=== PATIENT | male | born 1995 | race Caucasian/White ===

== ENCOUNTER 2016-12-19 21:15 | Emergency (ER) | payer OTHER ==
[~2016-12-19] VITALS: Ht 175.3 cm; Wt 113.4 kg
[~2016-12-19 21:15] MED LIST: ALLEGRA60 MG; ALLERGY SHOTS IM; BACTRIM DS 8001 TAB PO; MOTRIN600 MG PO; ZITHROMAX Z-PA250 M1 PO
[2016-12-19 21:59] LABS: HEMOGLOBIN 16.2 g/dL (14.1-18.0); LYMPH # 4.8 K/mm3 (0.7-4.5)
[2016-12-19 22:38] LABS: URINE BILIRUBIN - DIPSTICK NEGATIVE (NEG); URINE BLOOD 3+ (NEG)
--- NOTE | 2016-12-19 23:26 | Emergency Room Report ---
History of Present Illness Time Seen by [id number] Presenting Problem in Triage Pt arrived:Walked Presenting Problem:ABD PAIN THROUGH TO HIS BACK- SEVERE NAUSEA= SYMPTOMS STARTED WHEN HE LAID DOWN TO GO TO BED. HAS BEEN TO DR VANG ABOUT ELEVATED LIVER ENZYMES RECENTLY. 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 N Clinical Suspician of Infection? N Mental Status: 1 - Regular (Normal Baseline) Sepsis Risk:Low Sepsis Risk Have you (or family members/close friends) recently traveled outside the [place]? N If Yes, where/when: Have you had exposure to infectious disease within the past month? TB? Other? Specify: Source patient, RN notes reviewed, family, old records Exam Limitations no limitations Comment acute onset of lt sided abd pain- with no fever or vomiting Cardiac Chest Pain Chest pain indicative of cardiac No Timing/Duration this evening Severity moderate ALLERGIES Coded Allergies: No Known Drug Allergies (NKDA) (12/19/16) Home Medications Reported Medications No Known Home Medications History Medical History General Angina: No [place]: No Hypertension? Yes Hyperlipidemia? No CHF? No COPD? No Asthma? Yes CVA? No Seizures? No Diabetes? No GB Disease: No MRSA? Yes TB? No Cancer? No Immunization Hx DT/Tetanus 05/24/2011 Surgical Hx Previous Surgery?Y Tonsils EAR TUBES Social History Smoking Hx Smoker: Never Smoker Tobacco: No Type Snuff Are you/the child exposed to second-hand smoke: No Alcohol Alcohol: No Drugs none Review of Systems All Other Systems Reviewed and Negative Constitutional denies fever Eyes denies drainage ENT denies: ear discharge, epistaxis, throat pain. Respiratory denies cough, denies shortness of breath, denies wheezing Cardiovascular denies chest pain, denies palpitations, denies syncope Gastrointestinal see HPI, abdominal pain, nausea, vomiting Genitourinary denies: dysuria, frequency, hesitancy, scrotal/testicular pain. Musculoskeletal denies back pain, denies joint pain, denies joint swelling, denies neck pain Skin denies rash Psychiatric/Neurological denies headache, denies seizure Physical Exam Vital Signs Vital Signs Date Time Temp Pulse Resp B/P Pulse O2 O2 Flow FiO2 Ox Delivery Rate 12/1911 2121 98.6 85 18 173/138 97 - WBC >12,000 or <4,000 or 10% bands? 2 or more SIRS Criteria Met? B/P:173/138 MAP:149 Creatinine >2.0? UA output<0.5ml/kg/hr for 2 hrs? Platelet count >100,000? Lactate >2.0mmol/1? INR >1.2 or PTT > than 60 sec? Evidence of Organ Dysfunction? Provider documented clinical suspician of infection? N Sepsis Criteria Count: 0 Sepsis Risk: Low Sepsis Risk General Appearance no apparent distress Eye Exam - bilateral eye PERRL, bilateral eye EOMI Ear, Nose, Throat normal ENT inspection Neck supple Respiratory Status No: respiratory distress. 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 No Results/Orders Laboratory Tests 12/19/162229: Urine Color YELLOW, Urine Appearance CLOUDY, Urine pH 6.0, Ur Specific [place] 1.025, Urine Protein NEGATIVE, Urine Ketones NEGATIVE, Urine Blood 3+ H, Urine Nitrate NEGATIVE, Urine Bilirubin NEGATIVE, Urine Urobilinogen 0.2, Ur Leukocyte Esterase NEGATIVE, Urine RBC TNTC, Amorphous Sediment 2+, Urine Glucose NEGATIVE 12/19/162149: Amylase 38, Lipase 73 12/19/162149: Sodium 141, Potassium 3.5, Chloride 104, Carbon Dioxide 27, BUN 9, Creatinine 0.9, Estimated Creat Clear 206 H, Estimated GFR (MDRD) 106, Glucose 136 H, Calcium 9.0, Total Bilirubin 0.3, AST 15, ALT 35, Alkaline Phosphatase 75, Total Protein 7.1, Albumin 3.9, Globulin 3.2, Albumin/Globulin Ratio 1.2, WBC 10.4, RBC 5.64, Hgb 16.2, Hct 45.7, MCV 81.1 L, RDW 13.5, Plt Count 268, MPV 6.4 L, Gran % 45.5, Gran # 4.8, Lymphocytes % 46.0, Monocytes % 5.9, Eosinophils % 1.9, Basophils % 0.7, Lymphocytes # 4.8 H, Monocytes # 0.6, Eosinophils # 0.2, Basophils # 0.1, PUBS MCHC 35.4, MCH 28.7 Current Medication Orders Sig/Edith Start time Last Medication Dose Route Stop Time Status Admin Tamsulosin HCl 0.4 MG ONCE ONE 12/19 2329 DC 12/19 PO 12/19 Tamsulosin HCl 0 .STK-MED ONE 12/19 2316 DC PO Ketorolac 30 MG ONCE ONE 12/19 2199 DC 12/19 Tromethamine IV 12/19 Ondansetron HCl 4 MG ONCE ONE 12/19 2199 DC 12/19 IV 12/19 Ketorolac 0 .STK-MED ONE 12/19 2136 DC Tromethamine .ROUTE Ondansetron HCl 0 .STK-MED ONE 12/19 2135 DC .ROUTE Sodium Chloride 10 ML PRN PRN 12/19 2129 AC 12/19 IV 12/20 Orders Procedure Date/time Status DIET-NOTHING BY MOUTH 12/20 B Active URINALYSIS/COMPLETE 12/[address] ABD & PELVIS W/O CONTRAST 12/[address] ABD/PELVIS REQ 12/19 2135 Active IV SALINE LOCK 12/19 2129 Active LIPASE 12/19 2129 Complete CBC WITH AUTO DIFF 12/19 2129 Complete CHEM 12 PROFILE 12/19 2129 Complete AMYLASE 12/19 2129 Complete XRAY/CT/US XRAY/CT/US CT abdomen, pelvis CT interpretation by discussed w/radiologist Time results known: 2324 CT Results abnormal (kidney stone) Departure Departure Time of Disposition 2324 Disposition DC Home or Self Care(routine) Clinical Impression Primary Impression: Renal colic on left side Condition STABLE Referrals Marco Vang MD (Family) Patient Instructions DI for Kidney Stones Additional Instructions fluids and see pcp for follow up Discharge Counseling Counseled pt/family regarding diagnosis, test results, medications/RX, follow up needs Prescriptions Current Visit Scripts TAMSULOSIN HCL (Flomax 0.4MG) 0.4 MG PO DAILY #10 [facility] ED Critical Care Critical Care No at [id number]
[2016-12-19] MEDS ORDERED: FLOMAX 0.4MG C0.4 MG PO (23:33)
[2016-12-19 23:40] VITALS: BP 139/89
--- NOTE | 2016-12-20 06:44 | RADIOLOGY REPORT PS360 ---
CT ABD PELVIS W/O CONTRAST CLINICAL INDICATION: Abdominal pain with nausea and vomiting ABD PAIN ORDERING PHYSICIAN: Quoc Machado MD PATIENT AGE: 21 years COMPARISON: 07/26/2011 TECHNIQUE: Axial images obtained with sagittal and coronal reformats. PROCEDURE: Oral Contrast: None IV Contrast: None . FINDINGS: Lower thorax: No acute finding . Minimal nonspecific thickening of the pericardium anteriorly ABDOMEN: Liver: No masses or biliary dilatation. Gallbladder: Nondistended. No radio opaque stones. Pancreas: No masses or peripancreatic fluid collections. Spleen: Borderline splenomegaly at 14 cm Adrenals: Unremarkable Kidneys/ureters: Punctate right renal calculi. Mild left hydronephrosis and hydroureter secondary to a 3 mm stone at the ureterovesical junction Stomach bowel: Nondistended. No obvious mass or thickening. Appendix: No evidence of appendicitis. PELVIS: Reproductive: Unremarkable Bladder: Nondistended. No obvious stones or masses. ABDOMEN & PELVIS: Peritoneum: No abnormal fluid collections. No obvious inflammatory changes. No free air. Lymph nodes: No enlarged lymph nodes apparent. Vasculature: No evidence of abdominal aortic aneurysm. No retroperitoneal hemorrhage evident. Bones: No acute fracture IMPRESSION: 1. 3 mm left ureterovesical junction stone with mild hydroureteronephrosis. 2. Nonobstructing right nephrolithiasis.
== END 2016-12-19 23:41 | disposition home or self-care (01) ==
LOC: ER 21:15
PROVIDERS: Emergency Medicine
DX: N20.0 Calculus of kidney (principal); I10 Essential (primary) hypertension
CPT/HCPCS: J2405

== ENCOUNTER 2017-01-18 22:35 | Emergency (ER) | payer OTHER ==
[~2017-01-18] VITALS: Ht 175.3 cm; Wt 111.1 kg
[~2017-01-18 22:35] MED LIST changes: +FLOMAX 0.4MG C0.4 MG PO
--- NOTE | 2017-01-18 22:46 | Emergency Room Report ---
History of Present Illness Time Seen by [id number] Presenting Problem in Triage Pt arrived:Walked Presenting Problem:RIGHT FLANK PAIN FOLLOWED BY BURNING SENSATION WHEN URINATING. 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 N Clinical Suspician of Infection? N Mental Status: 1 - Regular (Normal Baseline) Sepsis Risk:Low Sepsis Risk Have you (or family members/close friends) recently traveled outside the [place]? N If Yes, where/when: Have you had exposure to infectious disease within the past month? N TB? Other? Specify: Source patient, RN notes reviewed, family, old records Exam Limitations no limitations Comment acute onset of rt flank pain with dysuria but no hemnaturia Cardiac Chest Pain Chest pain indicative of cardiac No Timing/Duration this evening Severity moderate ALLERGIES Coded Allergies: No Known Drug Allergies (NKDA) (12/19/16) Home Medications Reported Medications No Known Home Medications History Medical History General CAD? No Angina: No [place]: No Hypertension? Yes Hyperlipidemia? No CHF? No DVT? No PE? No COPD? No Asthma? Yes Anemia? No GERD? No Gastric ulcers? No GI Bleed? No Hernia? No Thyroid Problems? No Hypothyroidism? No CVA? No Seizures? No Diabetes? No Renal Insuffiency? No End Stage Renal Disease? No UTI? Yes Stones? Yes BPH? No GB Disease: No Nephritic Syndrome? No Asplenia? No Hepatitis? No Sickle Cell Disease? No Arthritis? No Migraines? No Cataracts? No Glaucoma? No MRSA? Yes HIV? No TB? No Anxiety? No Depression? No Cancer? No More? No Immunization Hx DT/Tetanus 05/24/2011 Surgical Hx Previous Surgery?Y Tonsils EAR TUBES Social History Smoking Hx Smoker: Never Smoker Tobacco: Yes Type Chew Alcohol Alcohol: No Drugs none Review of Systems All Other Systems Reviewed and Negative Constitutional denies fever Eyes denies drainage ENT denies: ear pain, epistaxis, throat pain. Respiratory denies cough, denies orthopnea, denies stridor, denies wheezing Cardiovascular denies chest pain, denies palpitations, denies other Gastrointestinal denies abdominal pain, denies diarrhea, nausea, denies vomiting Genitourinary denies: dysuria, frequency, hesitancy, hematuria, scrotal/testicular pain. Musculoskeletal denies back pain, denies joint pain, denies joint swelling, denies neck pain Skin denies rash Psychiatric/Neurological denies headache, denies seizure Physical Exam Vital Signs Vital Signs Date Time Temp Pulse Resp B/P Pulse O2 O2 Flow FiO2 Ox Delivery Rate 01/18 2241 98.8 76 16 143/96 97 - WBC >12,000 or <4,000 or 10% bands? 2 or more SIRS Criteria Met? B/P:143/96 MAP:111 Creatinine >2.0? UA output<0.5ml/kg/hr for 2 hrs? Platelet count >100,000? Lactate >2.0mmol/1? INR >1.2 or PTT > than 60 sec? Evidence of Organ Dysfunction? Provider documented clinical suspician of infection? N Sepsis Criteria Count: 0 Sepsis Risk: Low Sepsis Risk General Appearance no apparent distress Eye Exam - bilateral eye PERRL, bilateral eye EOMI Ear, Nose, Throat normal ENT inspection Neck supple Respiratory Status No: respiratory distress. 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 No Results/Orders Laboratory Tests 01/18/17 2300: Urine Color YELLOW, Urine Appearance CLEAR, Urine pH 6.0, Ur Specific [place] 1.020, Urine Protein NEGATIVE, Urine Ketones NEGATIVE, Urine Blood 3+ H, Urine Nitrate NEGATIVE, Urine Bilirubin NEGATIVE, Urine Urobilinogen 1.0, Ur Leukocyte Esterase TRACE H, Urine RBC 20-50, Urine WBC OCC, Ur Squamous Epith Cells OCC, Amorphous Sediment 2+, Urine Bacteria TRACE, RBC Casts OCC, Urine Glucose NEGATIVE 01/18/17 2250: Sodium 140, Potassium 4.1, Chloride 103, Carbon Dioxide 29, BUN 13, Creatinine 0.9, Estimated Creat Clear 202 H, Estimated GFR (MDRD) 106, Glucose 113 H, Calcium 9.0, Total Bilirubin 0.4, AST 14 L, ALT 27, Alkaline Phosphatase 75, Total Protein 7.4, Albumin 3.7, Globulin 3.7 H, Albumin/Globulin Ratio 1.0 L, WBC 5.9, RBC 5.38, Hgb 15.4, Hct 44.7, MCV 83.2, RDW 13.4, Plt Count 193, MPV 6.2 L, Gran % 57.8, Gran # 3.4, Lymphocytes % 32.1, Monocytes % 8.0, Eosinophils % 1.3, Basophils % 0.8, Lymphocytes # 1.9, Monocytes # 0.5, Eosinophils # 0.1, Basophils # 0.1, PUBS MCHC 34.4, MCH 28.6 Current Medication Orders Sig/Edith Start time Last Medication Dose Route Stop Time Status Admin Sodium Chloride 10 ML PRN PRN 01/18 2245 AC IV 01/19 2245 Orders Procedure Date/time Status DIET-NOTHING BY MOUTH 01/[address] ABD & PELVIS W/O CONTRAST 01/[address] ABD/PELVIS REQ 01/18 2245 Complete IV SALINE LOCK 01/18 2245 Active URINALYSIS/COMPLETE 01/18 2245 Complete CBC WITH AUTO DIFF 01/18 2245 Complete CHEM 12 PROFILE 01/18 2245 Complete XRAY/CT/US XRAY/CT/US CT abdomen, pelvis CT interpretation by discussed w/radiologist Time results known: 14 CT Results abnormal (see report) Departure Departure Time of Disposition 10 Disposition DC Home or Self Care(routine) Clinical Impression Primary Impression: Renal colic on right side Condition STABLE Referrals Marco Vang MD (Family) Patient Instructions DI for Hematuria Additional Instructions call pcp for follow up and use meds Discharge Counseling Counseled pt/family regarding diagnosis, test results, medications/RX, follow up needs Prescriptions Current Visit Scripts No Known Home Medications ED Critical Care Critical Care No at [id number]
[2017-01-18 23:12] LABS: HEMOGLOBIN 15.4 g/dL (14.1-18.0); LYMPH # 1.9 K/mm3 (0.7-4.5); LYMPH % 32.1 % (10-50)
[2017-01-18 23:17] LABS: URINE BILIRUBIN - DIPSTICK NEGATIVE (NEG); URINE BLOOD 3+ (NEG)
[2017-01-18 23:32] LABS: URINE SQUAMOUS CELLS OCC #/hpf (OCC)
[2017-01-19] MEDS ORDERED: CIPRO 500MG TA500 MG PO (00:16)
[2017-01-19] MEDS ORDERED: PYRIDIUM200 M2 PO (00:16)
[2017-01-19 00:28] VITALS: BP 136/74
--- NOTE | 2017-01-19 08:20 | RADIOLOGY REPORT PS360 ---
CT ABD PELVIS W/O CONTRAST CLINICAL INDICATION: Right flank pain KIDNEY STONE PROTOCOL ORDERING PHYSICIAN: Quoc Machado MD PATIENT AGE: 21 years COMPARISON: 01/18/2017 TECHNIQUE: Axial images obtained with sagittal and coronal reformats. PROCEDURE: Oral Contrast: None IV Contrast: None . FINDINGS: Lower thorax: No acute finding ABDOMEN: Liver: No masses or biliary dilatation. Gallbladder: Nondistended. No radio opaque stones. Pancreas: No masses or peripancreatic fluid collections. Spleen: Unremarkable. Adrenals: Unremarkable Kidneys/ureters: No renal calculi are evident. There is minimal distal right hydroureter and periureteral stranding. A definite ureteral stone is not identified. No obvious urinary bladder stone. Recently passed stone is a consideration. Stomach bowel: Nondistended. No obvious mass or thickening. Appendix: No evidence of appendicitis. PELVIS: Reproductive: Unremarkable Bladder: Nondistended. No obvious stones or masses. ABDOMEN & PELVIS: Peritoneum: No abnormal fluid collections. No obvious inflammatory changes. No free air. Lymph nodes: There are scattered small mesenteric and right lower quadrant lymph nodes nonspecific Vasculature: No evidence of abdominal aortic aneurysm. No retroperitoneal hemorrhage evident. Bones: No acute fracture IMPRESSION: 1. Minimal dilatation of the distal right ureter and stranding of the periureteral fat without definite ureteral stone. This may be secondary to recently passed urinary stone. Urinary tract infection is also a consideration. 2. Multiple small mesenteric and right lower quadrant lymph nodes nonspecific but could be seen with mesenteric adenitis.
== END 2017-01-19 00:31 | disposition home or self-care (01) ==
LOC: ER 22:35
PROVIDERS: Emergency Medicine
DX: N20.0 Calculus of kidney (principal); I10 Essential (primary) hypertension